=== PATIENT | male | born 1970 ===

== ENCOUNTER 2021-10-06 15:48 | Inpatient (IN) ==
[2021-10-06] MEDS: SODIUM CHLORIDE 0.9% 1000ML 1,000 ML IV SCH (16:35)
[2021-10-06 17:10] LABS: Basophils # (auto) 0.02 K/uL (0-0.2); Basophils % (auto) 0.2 %; Eosinophils # (auto) 0.17 K/uL (0-0.50); Eosinophils % (auto) 1.5 %; Hematocrit (blood only) 40.8 % (40.1-51.0); Hemoglobin 12.4 g/dl (14.0-18.0); Immature Granulocytes # (auto) 0.04 K/uL (0.00-0.02); Immature Granulocytes % (auto) 0.4 %; Lymphocytes # (auto) 1.43 K/uL (1.2-3.4); Lymphocytes % (auto) 12.9 %; Mean Corpuscular Hemoglobin 30.4 pg (25.0-34.0); Mean Corpuscular Hgb Conc 30.4 g/dL (32.0-36.0); Mean Platelet Volume 9.3 fL (9.4-12.4); Monocytes # (auto) 0.67 K/uL (0.24-0.82); Neutrophils # (auto) 8.76 K/uL (1.4-6.5); Platelet Count 164 K/uL (130-400); RDW Coefficient of Variation 15.4 % (11.5-14.5); RDW Standard Deviation 56.9 fL (36.4-46.3); Red Blood Count 4.08 M/uL (4.63-6.08); White Blood Count 11.09 K/ul (4.8-10.8)
--- NOTE | 2021-10-06 17:16 | XRay Report ---
XR chest 1V portable HISTORY: 51 years-old Male SEPSIS acute sepsis COMPARISON: CT abdomen and pelvis of same day TECHNIQUE: Portable AP view of the chest FINDINGS: Cardiac silhouette is enlarged. Left subclavian pacer/AICD. No pneumothorax. Trace left pleural effus ion. Pneumomediastinum. Reticular interstitial opacities with intermixed bibasilar consolidation. Pul monary vascular congestion. Bones appear grossly intact. IMPRESSION: 1. Cardiomegaly with pulmonary vascular congestion. 2. Mid to lower lung zone predominant interstitial and alveolar opacities are suggestive of an infect ious or inflammatory pneumonitis, possibly superimposed on fibrosis. 3. Trace left pleural effusion with pneumomediastinum again noted. ACT 112: Negative or not required by law. The above report was generated using voice recognition software. It may contain grammatical, syntax o r spelling errors. Electronically signed by: Graeme Carrera M.D. 10/06/2021 5:15 PM
[2021-10-06 17:33] LABS: Albumin Globulin Ratio 1.3 (0.9-2); Albumin Level 3.5 gm/dl (3.4-5.0); BUN Creatinine Ratio 33.3 (10-20); Bilirubin,Total 0.7 mg/dl (0.2-1.0); Calcium 9.1 mg/dl (8.5-10.1); Creatinine Clr Calc Pharmacy 123.8 ml/min; Est GFR (African American) 125.6 ml/min; Est GFR (Non-African American) 108.4 ml/min; Globulin 2.8 gm/dl (2.5-4.0); Magnesium 2.2 mg/dl (1.7-2.4); Potassium 4.4 mmol/L (3.5-5.1); Total Protein 6.3 gm/dl (6.0-8.3)
[2021-10-06 17:41] LABS: INR 1.1 (0.9-1.1); Partial Thromboplastin Ratio 0.9; Partial Thromboplastin Time 25.1 Seconds (21.0-31.0); Prothrombin Time 11.6 Seconds (9.0-12.0)
[2021-10-06] MEDS ORDERED: PIPERACILLIN/TAZOBACTAM 4.5 GM/120 ML BAG IV ONE (18:50)
--- NOTE | 2021-10-06 19:57 | Emergency Department Note ---
Impression & Plan Pneumonia, Pneumatosis coli, Pneumoperitoneum, Pneumomediastinum ED Provider Note NAME: BENJI MCKINLEY AGE: 51 SEX: M ARRIVES VIA: Walk-In INFORMANT: Patient, SNF staff ED PROVIDER(S): Héctor Ortiz MD CHIEF COMPLAINT: n/v, abnormal CT scan, referred. PLAN: Disposition: Admit MEDICAL DECISION MAKING: The patient is a pleasant 51-year-old gentleman with a complicated past medical history of myotonic muscular dystrophy, dysphagia status post PEG tube, cardiomyopathy, pAfib, non-Hodgkin's lymphoma, COVID-19 pneumonia, sleep apnea who presents to the emergency department referred from his detention facility at [facility] for evaluation of abnormal CT scan was performed outpatient and ordered for evaluation of nausea and vomiting that occurred yesterday. Patient reports he typically does not have nausea and vomiting and at this time does not feel nauseated. The patient presents in the setting of being admitted to [facility] at the beginning of August where it was noted that he had pneumoperitoneum at the time. He had an exploratory laparotomy performed with lysis of adhesions however per [facility] records there was no evidence of bowel perforation. He was diagnosed with COVID-19 pneumonia at that time and treated for this for the remainder of his hospitalization and was discharged to his current detention facility thereafter. On arrival, the patient is chronically ill-appearing, fatigued but no acute distress, afebrile with stable vital signs. He appears euvolemic to slightly hypervolemic. He has diminished breath sounds at the bases and lungs are otherwise clear. His abdomen is nontender. His gastrostomy tube site is clean dry and intact. EKG is paced on chest x-ray with presence of vascular congestion as well as reticular interstitial opacities intermixed with bibasilar consolidation. Note is made of trace left pleural effusion pneumomediastinum. WBC 11K nonspecific. HCT and platelets within normal limits. Chemistry without metabolic acidosis. Lactic acid 1.0, within normal limits. AST, ALT and alk phos 49, 70 and 344, respectively without prior values for comparison. Total bilirubin is within normal limits. Procalcitonin is marginally above normal range at 0.52. Covid-19 RNA, NAAT negative. Patient initially arrived to the emergency department with minimal documentation of his recent complicated medical course. I did review the patient's visit with RN at his detention facility and additional paperwork was faxed. Additionally documentation including discharge summary CT reports obtained from [facility]. These document the patient was admitted there on 08/13 where he was noted that he had pneumoperitoneum and underwent exploratory laparotomy per HPI above. Given the patient's recent exploratory laparotomy for those findings in comparison to CT findings today with benign abdominal exam it is suspected that these findings may reflect the evolution of the patient's previous findings in August. Case was discussed with general surgery on-call, Dr. Salinas. Appreciate recommendations and agrees that findings are unlikely to reflect an acute surgical condition per my description. Reasonable to admit the patient for further observation. Given lung findings and mildly elevated procalcitonin there is suspicion for component of pneumonia. He was ordered for IV Zosyn. Case was discussed with Dr. Santos, [facility] hospitalist, who will evaluate the patient for admission. Triage Nursing notes reviewed and agree them. Prior medical records reviewed Vital Signs: reviewed and remarkable for no significant abnormalities Differential diagnosis: Appendicitis, testicular torsion, infections, diverticulitis, UTI, obstruction, mesenteric ischemia, aortic pathology, inflammatory bowel disease, renal colic, PUD, pancreatitis, biliary pathology, hernia, volvulus, constipation, as well as other pathologies. ER treatment provided: See below. Diagnostics interpreted by me: ECG: Ventricular paced rhythm, 70 bpm, no ectopy, no overt acute ischemia. Cardiac Monitoring: An order for continuous cardiac monitoring was placed and demonstrated Ventricular paced rhythm, 70 bpm, no ectopy. Laboratory studies: See below Imaging studies: See below Outpatient CT ABDOMEN AND PELVIS CT WITH IV CONTRAST CT DOSE: 760.53 mGy.cm HISTORY: NAUSEA, VOMITING *CALL REPORT/HOLD PT* TECHNIQUE: Multiaxial CT images of the abdomen and pelvis were performed following the use of intravenous contrast. A dose lowering technique was utilized adhering to the principles of ALARA. COMPARISON STUDY: None. FINDINGS: Coarse interstitial thickening and patchy irregular airspace opacities are seen within the lung bases. Left-sided pacemaker is partially visualized. The heart is mildly enlarged. A percutaneous gastrostomy tube appears in good position. No dilated loops of bowel to suggest an obstruction. The gallbladder is surgically absent. The liver, spleen, adrenal glands, and pancreas are unremarkable. There is a 2 mm stone within the left kidney. No ureteral stones. No hydronephrosis. A few small bilateral renal hypodense lesions are radiopaque cast is on this study but statistically represent cysts. The bladder is unr emarkable. The main portal vein is patent. No evidence for portal venous gas. Normal caliber abdominal aorta. A a few prominent retroperitoneal lymph nodes the largest on image 228 measuring 22 x 9 mm. These lymph nodes are subcentimeter in short axis diameter. There is minimal retroperitoneal fat s tranding noted. There is extensive pneumatosis involving the cecum, ascending colon, and transverse colon. No bowel wall thickening or adjacent inflammatory change. No fluid collections to suggest an abscess. The extraluminal gas extends into the right retroperitoneal space and into the mediastinum. Evidence for prior midline incision. No suspicious lytic or blastic osseous lesions. IMPRESSION: 1. Extensive pneumatosis involving the cecum, ascending colon, and transverse colon with extraluminal gas extending into the right retroperitoneal space and mediastinum. These findings can be seen in the setting of benign pneumatosis coli. Ischemic bowel could also have a similar appearance in the appropriate clinical setting. Therefore, consider urgent surgical consultation for further evaluation. 2. Coarse interstitial thickening and patchy irregular airspace opacities within the lung bases which could represent an acute on chronic pneumonitis. 3. Left-sided nephrolithiasis. No hydronephrosis. 4. No evidence for bowel obstruction. 5. Additional findings as described above. Consultation(s): General surgery on-call, Dr. Salinas. Dr. Santos, [facility] hospitalist. HPI: The patient is a pleasant 51-year-old gentleman with a complicated past medical history of myotonic muscular dystrophy, dysphagia status post PEG tube, cardiomyopathy, pAfib, non-Hodgkin's lymphoma, COVID-19 pneumonia, sleep apnea who presents to the emergency department referred from his detention facility at [facility] for evaluation of abnormal CT scan was performed outpatient and ordered for evaluation of nausea and vomiting that occurred yesterday. Patient reports he typically does not have nausea and vomiting and at this time does not feel nauseated. The patient presents in the setting of being admitted to [facility] at the beginning of August where it was noted that he had pneumoperitoneum at the time. He had an exploratory laparotomy performed with lysis of adhesions however per [facility] records there was no evidence of bowel perforation. He was diagnosed with COVID-19 pneumonia at that time and treated for this for the remainder of his hospitalization and was discharged to his current detention facility thereafter. ROS: See above HPI for pertinent positives & negatives. A total of 10 systems reviewed and were otherwise negative. VITALS:See Below PHYSICAL EXAMINATION: GENERAL: Awake, alert, chronically ill-appearing, in no distress HENT: Normocephalic, atraumatic. Oropharynx with dry mucous membranes and otherwise unremarkable. EYES: Normal conjunctiva. Sclera non-icteric. NECK: Supple. No nuchal rigidity. FROM. No JVD. RESPIRATORY: Diminished at the bases and otherwise clear. CARDIAC: Regular rate, normal rhythm. Extremities warm and well perfused. Pulses equal. ABDOMEN: Soft, non-distended. No tenderness to palpation. PEG tube site c/d/i. No rebound or guarding. No masses. RECTAL: Deferred. MUSCULOSKELETAL: Chest examination reveals no tenderness. The back is symmetrical on inspection without obvious abnormality. There is no CVA tende rness to palpation. No joint edema. LOWER EXTREMITIES: Calves are equal size bilaterally and non-tender. 1+ BLE edema. No discoloration. NEURO: Normal sensorium. No sensory or motor deficits noted. SKIN: No rash or jaundice noted. Héctor Ortiz MD Past Med/Surg History Medical History (Updated 10/06/21 @ 21:00 by Simon Santos MD) Cardiomyopathy Dysphagia Myotonic muscular dystrophy SAMANTHA (obstructive sleep apnea) Paroxysmal atrial fibrillation Pneumonia due to COVID-19 virus Pneumoperitoneum Presence of combination internal cardiac defibrillator (ICD) and pacemaker Surgical History H/O exploratory laparotomy S/P gastrostomy Family History Other Family history non-contributory Social History Smoking Status: Never smoker Feels Safe at Home: Yes Allergies Allergies Allergy/AdvReac Type Severity Reaction Status Date / Time morphine Allergy Unknown Unknown Verified 10/06/21 17:02 Home Meds Home Medications Medication Instructions Recorded Confirmed Compound Magic Mix See Rx Instructions .Route .COMPLEX 10/06/21 10/06/21 Compound Magic Mix See Rx Instructions .Route .COMPLEX 10/06/21 10/06/21 Enternal Feed Order See Rx Instructions .Route .COMPLEX 10/06/21 10/06/21 Enternal Feed Order See Rx Instructions .Route .COMPLEX 10/06/21 10/06/21 Metamucil Cap 0.36gm 5 cap G-tube DAILY 10/06/21 10/06/21 acetaminophen 325 mg tablet 650 mg feeding tube Q6 PRN pain 10/06/21 10/06/21 level 1-10 acetaminophen 325 mg tablet 650 mg feeding tube Q6 PRN temp>101 10/06/21 10/06/21 albuterol sulfate 2.5 mg inhalation Q6 PRN Wheezing 10/06/21 10/06/21 apixaban 5 mg tablet (Eliquis) 5 mg feeding tube BID 10/06/21 10/06/21 carbamide peroxide 6.5 % ear drops 4 drp OTB BID 10/06/21 10/06/21 (Debrox) furosemide 40 mg tablet 40 mg feeding tube DAILY 10/06/21 10/06/21 guaifenesin 400 mg tablet 400 mg PO Q8 PRN Congestion 10/06/21 10/06/21 lactulose 20 gram/30 mL oral 20 g PO BID 10/06/21 10/06/21 solution melatonin 1 mg tablet 2 mg feeding tube HS 10/06/21 10/06/21 metoprolol succinate 25 mg 12.5 mg PO DAILY 10/06/21 10/06/21 tablet,extended release 24 hr multivitamin 1 tab feeding tube DAILY 10/06/21 10/06/21 nutritional supplements 1 ea feeding tube QS 10/06/21 10/06/21 nystatin 100,000 unit/gram topical 1 applic topical BID 10/06/21 10/06/21 cream omeprazole 20 mg delayed 20 mg PO DAILY 10/06/21 10/06/21 release,disintegrating tablet ondansetron HCl 4 mg/5 mL oral 4 mg feeding tube Q6 PRN Nausea 10/06/21 10/06/21 solution And Vomiting potassium chloride 10 mEq 10 meq PO DAILY 10/06/21 10/06/21 tablet,extended release scopolamine base 1 mg over 3 days 1 patch transdermal Q72H 10/06/21 10/06/21 transdermal patch sertraline 25 mg tablet 50 mg feeding tube DAILY 10/06/21 10/06/21 simethicone 125 mg tablet 125 mg feeding tube Q6 PRN 10/06/21 10/06/21 flatulence Results & Data (ED) Vital Signs Vital Signs - 24 hr 10/06/21 15:54 10/06/21 16:38 10/06/21 16:21 Temperature 36.3 C L Temperature Source Temporal Artery Scan Pulse Rate 95 H Pulse Rate [Finger] Respiratory Rate 18 20 Respiratory Effort / Characteristics Non-Labored Non-Labored Spontaneous Respiratory Depth Normal Blood Pressure 105/69 Blood Pressure [Right Arm] Blood Pressure Mean 81 Blood Pressure Mean [Right Arm] Pulse Oximetry 94 100 100 Oxygen Delivery Method Room Air Nasal Cannula Nasal Cannula Oxygen Flow Rate Sepsis Recent Fever Within 48 Hours No Sepsis New/Unexplained Change in Mental Status No Sepsis Action Taken by Nursing No Action Required 10/06/21 16:30 10/06/21 16:51 10/06/21 17:21 Temperature Temperature Source Pulse Rate 70 Pulse Rate [Finger] Respiratory Rate 16 20 Respiratory Effort / Characteristics Non-Labored Spontaneous Non-Labored Spontaneous Respiratory Depth Blood Pressure 120/83 Blood Pressure [Right Arm] Blood Pressure Mean 95 Blood Pressure Mean [Right Arm] Pulse Oximetry 99 100 100 Oxygen Delivery Method Nasal Cannula Nasal Cannula Oxygen Flow Rate Sepsis Recent Fever Within 48 Hours Sepsis New/Unexplained Change in Mental Status Sepsis Action Taken by Nursing 10/06/21 17:30 10/06/21 16:41 10/06/21 17:00 Temperature Temperature Source Pulse Rate 70 70 Pulse Rate [Finger] Respiratory Rate 13 23 Respiratory Effort / Characteristics Non-Labored Spontaneous Respiratory Depth Blood Pressure 104/68 103/66 Blood Pressure [Right Arm] Blood Pressure Mean 80 78 Blood Pressure Mean [Right Arm] Pulse Oximetry 100 100 100 Oxygen Delivery Method Nasal Cannula Oxygen Flow Rate Sepsis Recent Fever Within 48 Hours Sepsis New/Unexplained Change in Mental Status Sepsis Action Taken by Nursing 10/06/21 17:15 10/06/21 17:30 10/06/21 18:00 Temperature Temperature Source Pulse Rate 70 70 Pulse Rate [Finger] Respiratory Rate 14 13 Respiratory Effort / Characteristics Non-Labored Spontaneous Respiratory Depth Blood Pressure 108/68 95/66 L Blood Pressure [Right Arm] Blood Pressure Mean 81 75 Blood Pressure Mean [Right Arm] Pulse Oximetry 99 97 98 Oxygen Delivery Method Nasal Cannula Oxygen Flow Rate Sepsis Recent Fever Within 48 Hours Sepsis New/Unexplained Change in Mental Status Sepsis Action Taken by Nursing 10/06/21 18:30 10/06/21 17:45 10/06/21 18:31 Temperature Temperature Source Pulse Rate 70 66 Pulse Rate [Finger] Respiratory Rate 13 Respiratory Effort / Characteristics Non-Labored Spontaneous Respiratory Depth Blood Pressure 107/72 103/76 Blood Pressure [Right Arm] Blood Pressure Mean 83 85 Blood Pressure Mean [Right Arm] Pulse Oximetry 97 99 100 Oxygen Delivery Method Nasal Cannula Oxygen Flow Rate Sepsis Recent Fever Within 48 Hours Sepsis New/Unexplained Change in Mental Status Sepsis Action Taken by Nursing 10/06/21 20:00 Temperature Temperature Source Pulse Rate Pulse Rate [Finger] 70 Respiratory Rate 20 Respiratory Effort / Characteristics Respiratory Depth Blood Pressure Blood Pressure [Right Arm] 101/64 Blood Pressure Mean Blood Pressure Mean [Right Arm] 76 Pulse Oximetry 99 Oxygen Delivery Method Nasal Cannula Oxygen Flow Rate 4 Sepsis Recent Fever Within 48 Hours Sepsis New/Unexplained Change in Mental Status Sepsis Action Taken by Nursing Laboratory Data Attestation: I reviewed the patient's lab results. Result diagrams: 10/06/21 16:56 10/06/21 16:56 Lab Results 10/06/21 10/06/21 10/06/21 Range/Units 16:35 16:56 16:56 WBC 11.09 H (4.8-10.8) K/ul RBC 4.08 L (4.63-6.08) M/uL Hgb 12.4 L (14.0-18.0) g/dl Hct 40.8 (40.1-51.0) % MCV 100.0 (80.0-100.0) fL MCH 30.4 (25.0-34.0) pg MCHC 30.4 L (32.0-36.0) g/dL RDW Std Deviation 56.9 H (36.4-46.3) fL RDW Coeff of Tommie 15.4 H (11.5-14.5) % Plt Count 164 (130-400) K/uL MPV 9.3 L (9.4-12.4) fL Immature Gran % (Auto) 0.4 % Neut % (Auto) 79.0 % Lymph % (Auto) 12.9 % [place] % (Auto) 6.0 % Eos % (Auto) 1.5 % Baso % (Auto) 0.2 % Neut # (Auto) 8.76 H (1.4-6.5) K/uL Lymph # (Auto) 1.43 (1.2-3.4) K/uL [place] # (Auto) 0.67 (0.24-0.82) K/uL Eos # (Auto) 0.17 (0-0.50) K/uL Baso # (Auto) 0.02 (0-0.2) K/uL Immature Gran # (Auto) 0.04 H (0.00-0.02) K/uL PT 11.6 (9.0-12.0) Seconds INR 1.1 (0.9-1.1) APTT 25.1 (21.0-31.0) Seconds PTT Ratio 0.9 Sodium (136-145) mmol/L Potassium (3.5-5.1) mmol/L Chloride (98-107) mmol/L Carbon Dioxide (21-32) mmol/L Anion Gap (3-11) BUN (6-23) mg/dl Creatinine (0.6-1.4) mg/dl Est Cr Clr Drug Dosing ml/min Est GFR ( Amer) ml/min Est GFR (Non-Af Amer) ml/min BUN/Creatinine Ratio (10-20) Glucose (70-99(Fasting)) mg/dl Lactate (0.4-2.0) mmol/L Calcium (8.5-10.1) mg/dl Magnesium (1.7-2.4) mg/dl Total Bilirubin (0.2-1.0) mg/dl AST (13-39) U/L ALT (7-52) U/L Alkaline Phosphatase (34-104) U/L Total Protein (6.0-8.3) gm/dl Albumin (3.4-5.0) gm/dl Globulin (2.5-4.0) gm/dl Albumin/Globulin Ratio (0.9-2) Procalcitonin (0-0.5) ng/ml SARS-CoV-2, RNA, NAAT NEGATIVE (NEGATIVE) 10/06/21 10/06/21 10/06/21 Range/Units 16:56 16:56 16:57 WBC (4.8-10.8) K/ul RBC (4.63-6.08) M/uL Hgb (14.0-18.0) g/dl Hct (40.1-51.0) % MCV (80.0-100.0) fL MCH (25.0-34.0) pg MCHC (32.0-36.0) g/dL RDW Std Deviation (36.4-46.3) fL RDW Coeff of Tommie (11.5-14.5) % Plt Count (130-400) K/uL MPV (9.4-12.4) fL Immature Gran % (Auto) % Neut % (Auto) % Lymph % (Auto) % [place] % (Auto) % Eos % (Auto) % Baso % (Auto) % Neut # (Auto) (1.4-6.5) K/uL Lymph # (Auto) (1.2-3.4) K/uL [place] # (Auto) (0.24-0.82) K/uL Eos # (Auto) (0-0.50) K/uL Baso # (Auto) (0-0.2) K/uL Immature Gran # (Auto) (0.00-0.02) K/uL PT (9.0-12.0) Seconds INR (0.9-1.1) APTT (21.0-31.0) Seconds PTT Ratio Sodium 140 (136-145) mmol/L Potassium 4.4 (3.5-5.1) mmol/L Chloride 104 (98-107) mmol/L Carbon Dioxide 33 H (21-32) mmol/L Anion Gap 3 (3-11) BUN 23 (6-23) mg/dl Creatinine 0.69 (0.6-1.4) mg/dl Est Cr Clr Drug Dosing 123.8 ml/min Est GFR ( Amer) 125.6 ml/min Est GFR (Non-Af Amer) 108.4 ml/min BUN/Creatinine Ratio 33.3 H (10-20) Glucose 102 H (70-99(Fasting)) mg/dl Lactate 1.0 (0.4-2.0) mmol/L Calcium 9.1 (8.5-10.1) mg/dl Magnesium 2.2 (1.7-2.4) mg/dl Total Bilirubin 0.7 (0.2-1.0) mg/dl AST 49 H (13-39) U/L ALT 70 H (7-52) U/L Alkaline Phosphatase 344 H (34-104) U/L Total Protein 6.3 (6.0-8.3) gm/dl Albumin 3.5 (3.4-5.0) gm/dl Globulin 2.8 (2.5-4.0) gm/dl Albumin/Globulin Ratio 1.3 (0.9-2) Procalcitonin 0.52 H (0-0.5) ng/ml SARS-CoV-2, RNA, NAAT (NEGATIVE) Administered Medications Carbamide Peroxide (Carbamide Peroxide 6.5% 15 Ml Btl) 4 drops OTB BID [place] Stop: 10/10/21 22:12 Last Admin: 10/06/21 23:47 Dose: 4 drops Documented By: CHARO Enoxaparin Sodium (Enoxaparin Inj 40 Mg/0.4 Ml Syr) 40 mg SQ HS [place] Stop: 11/05/21 22:59 Last Admin: 10/06/21 23:47 Dose: 40 mg Documented By: CHARO Sodium Chloride (Nss 1000ml) 1,000 mls @ 125 mls/hr IV .Q8H [place] Stop: 11/05/21 16:29 Last Admin: 10/07/21 00:42 Dose: 125 mls/hr Documented By: Infusion: 10/07/21 00:35 Dose: 125 mls/hr Documented By: Admin: 10/06/21 16:35 Dose: 125 mls/hr Documented By: MARIANGEL Discontinued Medications Piperacillin Sod/Tazobactam Sod (Zosyn) 4.5 gm in 120 mls @ 240 mls/hr IV NOW ONE Stop: 10/06/21 19:19 Last Infusion: 10/06/21 20:00 Dose: 0 mls/hr Documented By: Admin: 10/06/21 19:13 Dose: 240 mls/hr Documented By: CHARO Lactulose (Lactulose Syrup 20 Gm/30 Ml Udc) 20 gm PO BID [place] Stop: 11/05/21 22:12 Last Admin: 10/06/21 23:18 Dose: Not Given Documented By: CHARO Imaging Data Radiologist's Impression: Chest X-Ray 10/06/21 16:21 XR chest 1V portable HISTORY: 51 years-old Male SEPSIS acute sepsis COMPARISON: CT abdomen and pelvis of same day TECHNIQUE: Portable AP view of the chest FINDINGS: Cardiac silhouette is enlarged. Left subclavian pacer/AICD. No pneumothorax. Trace left pleural effusion. Pneumomediastinum. Reticular interstitial opacities with intermixed bibasilar consolidation. Pulmonary vascular congestion. Bones appear grossly intact. IMPRESSION: 1. Cardiomegaly with pulmonary vascular congestion. 2. Mid to lower lung zone predominant interstitial and alveolar opacities are suggestive of an infectious or inflammatory pneumonitis, possibly superimposed on fibrosis. 3. Trace left pleural effusion with pneumomediastinum again noted. ACT 112: Negative or not required by law. The above report was generated using voice recognition software. It may contain grammatical, syntax or spelling errors. Electronically signed by: Graeme Carrera M.D. 10/06/2021 5:15 PM Discharge Plan Visit Data Chief Complaint: Testing Request Stated Complaint: ABNORMAL CT RESULTS, DR LUDWIG ED Provider: Héctor Ortiz Discharge Problem: Pneumonia, Pneumatosis coli, Pneumoperitoneum, Pneumomediastinum Patient Disposition: Admitted As Inpatient Discharge Instructions Interventions: ED Discharge Assessment Last Done: 10/06/21 22:19
--- NOTE | 2021-10-06 20:04 | Surgery Consultation ---
Date of Consultation October 06, 2021 Assessment & Plan (1) Pneumatosis coli: Patient is being admitted on the hospitalist service: At the time of my interview the patient has an entirely benign abdominal exam. Though we do not have the images from patient's presentation to [facility], the report was available. The description of patient's CT scan at that time appears very similar to the CT scan reading at [facility] today. As noted the patient underwent emergent exploratory laparotomy without any significant findings of ischemia or perforation of the bowel or small bowel. Patient has an entirely benign abdominal exam at this time. He does not have any concerning laboratory or clinical evidence of intestinal ischemia (only minimal elevation of his white blood cell count, normal lactic acid level, normal renal function, normotensive, not tachycardic, and afebrile). This case was discussed with Dr. Salinas and he recommends proceeding as follows: No operative intervention at this time due to the benign findings on exam Keep patient n.p.o. for the present time Hydrate with IV fluids Empiric treatment with antibiotics Follow serial labs The patient will be reassessed throughout his hospitalization with additional recommendations to follow based on his clinical course as it unfolds Supervising Physician Co-Signing Physician Notes As per Sha Muro physician assistant food service director The patient is resting comfortably without any abdominal discomfort no nausea had a bowel movement this morning The abdomen is completely benign Patient does take oral intake PEG tube was placed when he had COVID as best as I can tell what the patient tells me it is occasionally being used At this point I would recommend proceeding with some oral intake no surgery is planned History of Present Illness Reason for Consultation: Pneumatosis intestinalis History of Present Illness Is a 51-year-old male with multiple underlying medical problems including muscular dystrophy, atrial fibrillation, congestive heart failure, and a COVID- 19 infection in March of this year complicated by hypoxic respiratory failure. The patient's past surgical history includes a cholecystectomy, tracheostomy, PEG tube placement, and ICD placement patient proved to be a poor historian regarding his recent past medical history however information was obtained from review of records that were retrieved from facilities where patient previously received care. This patient suffered a COVID-19 infection in March 2021 resulting in hypoxic respiratory failure. The patient did require tracheostomy and PEG tube placement. Following his COVID infection patient was at [facility] recovering. He reportedly developed severe abdominal pain along with nausea and vomiting on August 13 of this year. Patient was sent for a CT scan of the abdomen which showed concern for a perforation of the colon at the level of the a sending colon/hepatic flexure. There is also extraluminal gas noted and there is also pneumatosis noted in the ascending colon. It was noted that the patient had a prior cholecystectomy and his appendix was normal on the study. The patient was seen by the surgical service at [facility] in [place] on 08/14/2021 and patient was taken emergent to the operating room where he underwent an exploratory laparotomy. According to the operative note the patient's entire small bowel was run from the ligament of Treitz to the cecum. The entire colon was examined as well. There were no areas of ischemia of the small or large bowel. There is no evidence of perforation. No colon masses were noted. There is no twisting of the mesentery noted. The patient also had an intraoperative rectal exam performed which was negative for any masses. There was some questionable constriction of the sigmoid colon due to epiploic appendages which were ultimately taken down. Cording to this operative note the patient did not require any small bowel or large bowel resection. Patient remained in the hospital until September 02 and according to discharge summary his extensive hospitalization was in large part due to difficulty placing the patient due to his multiple medical comorbidities. Patient has reportedly since been residing at the [facility] when earlier today the patient developed nausea and vomiting. He was therefore referred to [facility] emergency department where he underwent labs and imaging which are delineated below. I did asked the patient about his nausea and vomiting and he notes that this occurred earlier this morning but he specifically denies any abdominal pain. To the best of his knowledge he did not have any fevers, shakes, or chills. He notes that he has not had any change in bowel habits and he to the best of his knowledge he did have a bowel movement yesterday. He notes that he has been eating well and his most recent meal was his evening meal yesterday. He specifically denies any shortness of breath or cough. Denies any difficulty urinating. The patient has had labs and imaging performed today both as an outpatient and also in the emergency department. These were independently reviewed by myself. A CT scan was performed earlier today. The scan showed extensive pneumatosis which involved the cecum, ascending colon, and transverse colon with extraluminal gas extending into the right retroperitoneal space and mediastinum. No evidence of bowel obstruction. There is no evidence of hydronephrosis but a left-sided nephrolithiasis was noted. There is no evidence of portal venous gas. Chest x-ray was performed that showed a trace left pleural effusion and pneumomediastinum. Labs including CBC were white blood cell count was 11.0. Hemoglobin was 12.4 and hematocrit was normal. His platelet count was also noted to be normal. Coagulation studies were all within the normal limits. Chemistry profile showed sodium, potassium, BUN, and creatinine were normal. A lactic acid level was nonelevated at 1.0. There was a slight elevation of patient's transaminases and alkaline phosphatase with an AST of 49, ALT of 70, and alkaline phosphatase of 344. His total bilirubin was normal. Procalcitonin had a very slight elevation at 0.52. A COVID test was performed and was noted to be negative. Patient was unsure about any medical problems that run in his family. He also reports being a lifetime non-smoker. At the time of my interview the patient was resting comfortably in bed. He was in no distress and did not report any pain of his abdomen. Allergies Allergy/AdvReac Type Severity Reaction Status Date / Time morphine Allergy Unknown Unknown Verified 10/06/21 17:02 Home Medications Medication Instructions Recorded Confirmed Type Compound Magic Mix See Rx Instructions .Route .COMPLEX 10/06/21 10/06/21 History Compound Magic Mix See Rx Instructions .Route .COMPLEX 10/06/21 10/06/21 History Enternal Feed Order See Rx Instructions .Route .COMPLEX 10/06/21 10/06/21 History Enternal Feed Order See Rx Instructions .Route .COMPLEX 10/06/21 10/06/21 History Metamucil Cap 0.36gm 5 cap G-tube DAILY 10/06/21 10/06/21 History acetaminophen 325 mg tablet 650 mg feeding tube Q6 PRN pain 10/06/21 10/06/21 History level 1-10 acetaminophen 325 mg tablet 650 mg feeding tube Q6 PRN temp>101 10/06/21 10/06/21 History albuterol sulfate 2.5 mg inhalation Q6 PRN Wheezing 10/06/21 10/06/21 History apixaban 5 mg tablet (Eliquis) 5 mg feeding tube BID 10/06/21 10/06/21 History carbamide peroxide 6.5 % ear drops 4 drp OTB BID 10/06/21 10/06/21 History (Debrox) furosemide 40 mg tablet 40 mg feeding tube DAILY 10/06/21 10/06/21 History guaifenesin 400 mg tablet 400 mg PO Q8 PRN Congestion 10/06/21 10/06/21 History lactulose 20 gram/30 mL oral 20 g PO BID 10/06/21 10/06/21 History solution melatonin 1 mg tablet 2 mg feeding tube HS 10/06/21 10/06/21 History metoprolol succinate 25 mg 12.5 mg PO DAILY 10/06/21 10/06/21 History tablet,extended release 24 hr multivitamin 1 tab feeding tube DAILY 10/06/21 10/06/21 History nutritional supplements 1 ea feeding tube QS 10/06/21 10/06/21 History nystatin 100,000 unit/gram topical 1 applic topical BID 10/06/21 10/06/21 History cream omeprazole 20 mg delayed 20 mg PO DAILY 10/06/21 10/06/21 History release,disintegrating tablet ondansetron HCl 4 mg/5 mL oral 4 mg feeding tube Q6 PRN Nausea 10/06/21 10/06/21 History solution And Vomiting potassium chloride 10 mEq 10 meq PO DAILY 10/06/21 10/06/21 History tablet,extended release scopolamine base 1 mg over 3 days 1 patch transdermal Q72H 10/06/21 10/06/21 History transdermal patch sertraline 25 mg tablet 50 mg feeding tube DAILY 10/06/21 10/06/21 History simethicone 125 mg tablet 125 mg feeding tube Q6 PRN 10/06/21 10/06/21 History flatulence Patient History Medical History (Updated 10/06/21 @ 21:00 by Simon Santos MD) Cardiomyopathy Dysphagia Myotonic muscular dystrophy SAMANTHA (obstructive sleep apnea) Paroxysmal atrial fibrillation Pneumonia due to COVID-19 virus Pneumoperitoneum Presence of combination internal cardiac defibrillator (ICD) and pacemaker Surgical History H/O exploratory laparotomy S/P gastrostomy Family History Other Family history non-contributory Social History Smoking Status: Never smoker Hx Alcohol Use: No Hx Substance Use: No Preferred Language: Taiwanese Greenhouse Worker Required: No Beliefs That Will Affect Care: None Current Living Situation: Personal Care Facility Feels Safe at Home: Yes Assistive Devices: Mechanical Lift and Oxygen - Continuous Immunizations: Please see the HPI for listed past medical history, past surgical history, social history, and family history. Review of Systems Constitutional: no fever and no chills Eyes: no eye pain Ear, Nose, Mouth, Throat: no ear pain Respiratory: no cough and no dyspnea Cardiovascular: no chest pain Gastrointestinal: + nausea and + vomiting; no abdominal pain and no change in bowel habits Genitourinary: no dysuria Musculoskeletal: no back pain Integumentary: no rash Neurologic: History of muscular dystrophy Physical Exam Constitutional: + thin; no acute distress Eyes: no conjunctival abnormality ENMT: Ears: no hearing impairment and no external ear abnormality Mucous membranes of the oropharynx appeared dry Neck: trachea midline Respiratory: normal respiratory effort; no respiratory distress and no labored breathing No wheezing. Cardiovascular: Rate/Rhythm: regular rate and regular rhythm Gastrointestinal (Abdomen): Patient's abdomen is soft, nonrigid, nondistended, and nontender. There is no rebound tenderness or guarding. There is no pain with light or deep palpation in any area of the abdomen. A PEG tube is noted to be in place. The insertion site appears clean without signs of infection. Musculoskeletal: No calf tenderness Skin: no rashes Neurologic: Patient is able to move all 4 extremities and follows simple commands Results & Data ([facility]) Vital Signs (Past 12 Hours) Vital Signs Temp Pulse Resp BP Pulse Ox O2 Del Method 10/06/21 18:31 66 103/76 100 10/06/21 17:45 70 13 107/72 99 10/06/21 18:30 97 Nasal Cannula 10/06/21 18:00 98 Nasal Cannula 10/06/21 17:30 70 13 95/66 L 97 10/06/21 17:15 70 14 108/68 99 10/06/21 17:00 70 23 103/66 100 10/06/21 16:41 70 13 104/68 100 10/06/21 17:30 100 Nasal Cannula 07/28/22 17:21 100 Nasal Cannula 10/06/21 16:51 20 100 Nasal Cannula 10/06/21 16:30 70 16 120/83 99 10/06/21 16:21 100 Nasal Cannula 10/06/21 16:38 20 100 Nasal Cannula 10/06/21 15:54 36.3 C L 95 H 18 105/69 94 Room Air PG Care Time/CCT Total # of Minutes Spent Total Time Spent with Patient: Total time spent is greater than 50% in coordination of care (as documented) at patient's floor/unit and/or counseling patient: Coding Level of Care Code 18073 Inpt Consult Level 5 Diagnoses Pneumatosis coli K63.89
--- NOTE | 2021-10-06 21:16 | History & Physical Report ---
Date of Service October 06, 2021 Assessment & Plan (1) Pneumatosis coli: Plan: CT a/p on admission showed "Extensive pneumatosis involving the cecum, ascending colon, and transverse colon with extraluminal gas extending into the right retroperitoneal space and mediastinum." This reads very similar to his CT a/p at [facility] on 08/13/2021 for which he underwent a benign exploratory laparotomy. - Presently abdomen appears benign with minimal tenderness, no rebound/guarding. Seen by surgery with no acute surgical need. Discussed case with Thai Hdez at [facility]. He coincidentally published paper on pneumatosis in patients using lactulose (PMID: [id number]). He agreed that there was no indication for surgery at this time given his physical exam findings, vital signs, and normal lactate. - NPO - Stop lactulose - Start Zosyn - General surgery will follow (2) Pneumonia: Plan: Possible pneumonia vs. lung scarring as (again), CT a/p from 08/13 shows similar findings in the lung bases. Procalcitonin is 0.5, but there is so much going on for him that I - Zosyn for the pneumatosis will cover usual PNA bacteria as well as aspiration pneumonia - Defer atypical coverage for now - MRSA swab (3) Cardiomyopathy: Plan: Unknown EF and unknown cause (presumed due to his MD?). No records available at this time. - Continue beta-tata and furosemide (4) Paroxysmal atrial fibrillation: Plan: Presently in normal sinus. - Continue beta-tata - Hold apixaban (5) Dysphagia: Plan: Was trached due to Covid. Unclear if dysphagia is from trach vs muscular dystrop hy or both. It sounds like he does eat at [facility], and I'm not clear on if it is just with DEHYDRATOR TENDER or if he has an actual diet. - DEHYDRATOR TENDER eval ordered 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 (7) DVT prophylaxis: Plan: Lovenox 40 mg SQ daily - Return to home apixaban once we are sure no surgery is needed History of Present Illness Primary Care Provider: [facility] 51yo M w/ hx of muscular dystrophy who presents with episode of pneumatosis coli. The patient was admitted to [facility] in early August when he had nausea, vomiting, and abdominal pain. At that time, there was concern for perforation in the region of the ascending colon/hepatic flexure with pericolonic extraluminal gas and trace RUQ pneumoperitoneum. He underwent an emergent ex lap at [facility], and they did *NOT* find any perforation. He was eventually discharged to [facility]. Per the patient, yesterday they were giving him medications in applesauce yesterday when he became acutely nauseated and threw up. However, he did not have abdominal pain. The provider there ordered a CT scan which showed further pneumatosis, and he was sent to the ER. Allergies Allergy/AdvReac Type Severity Reaction Status Date / Time morphine Allergy Unknown Unknown Verified 10/06/21 17:02 Home Medications Medication Instructions Recorded Confirmed Type Compound Magic Mix See Rx Instructions .Route .COMPLEX 10/06/21 10/06/21 History Compound Magic Mix See Rx Instructions .Route .COMPLEX 10/06/21 10/06/21 History Enternal Feed Order See Rx Instructions .Route .COMPLEX 10/06/21 10/06/21 History Enternal Feed Order See Rx Instructions .Route .COMPLEX 10/06/21 10/06/21 History Metamucil Cap 0.36gm 5 cap G-tube DAILY 10/06/21 10/06/21 History acetaminophen 325 mg tablet 650 mg feeding tube Q6 PRN pain 10/06/21 10/06/21 History level 1-10 acetaminophen 325 mg tablet 650 mg feeding tube Q6 PRN temp>101 10/06/21 10/06/21 History albuterol sulfate 2.5 mg inhalation Q6 PRN Wheezing 10/06/21 10/06/21 History apixaban 5 mg tablet (Eliquis) 5 mg feeding tube BID 10/06/21 10/06/21 History carbamide peroxide 6.5 % ear drops 4 drp OTB BID 10/06/21 10/06/21 History (Debrox) furosemide 40 mg tablet 40 mg feeding tube DAILY 10/06/21 10/06/21 History guaifenesin 400 mg tablet 400 mg PO Q8 PRN Congestion 10/06/21 10/06/21 History lactulose 20 gram/30 mL oral 20 g PO BID 10/06/21 10/06/21 History solution melatonin 1 mg tablet 2 mg feeding tube HS 10/06/21 10/06/21 History metoprolol succinate 25 mg 12.5 mg PO DAILY 10/06/21 10/06/21 History tablet,extended release 24 hr multivitamin 1 tab feeding tube DAILY 10/06/21 10/06/21 History nutritional supplements 1 ea feeding tube QS 10/06/21 10/06/21 History nystatin 100,000 unit/gram topical 1 applic topical BID 10/06/21 10/06/21 History cream omeprazole 20 mg delayed 20 mg PO DAILY 10/06/21 10/06/21 History release,disintegrating tablet ondansetron HCl 4 mg/5 mL oral 4 mg feeding tube Q6 PRN Nausea 10/06/21 10/06/21 History solution And Vomiting potassium chloride 10 mEq 10 meq PO DAILY 10/06/21 10/06/21 History tablet,extended release scopolamine base 1 mg over 3 days 1 patch transdermal Q72H 10/06/21 10/06/21 History transdermal patch sertraline 25 mg tablet 50 mg feeding tube DAILY 10/06/21 10/06/21 History simethicone 125 mg tablet 125 mg feeding tube Q6 PRN 10/06/21 10/06/21 History flatulence Past Med/Surg History Medical History (Updated 10/06/21 @ 21:00 by Simon Santos MD) Cardiomyopathy Dysphagia Myotonic muscular dystrophy SAMANTHA (obstructive sleep apnea) Paroxysmal atrial fibrillation Pneumonia due to COVID-19 virus Pneumoperitoneum Presence of combination internal cardiac defibrillator (ICD) and pacemaker Surgical History H/O exploratory laparotomy S/P gastrostomy Family History Other Family history non-contributory Social History Smoking Status: Never smoker Feels Safe at Home: Yes Review of Systems Review of Systems: All systems reviewed & are unremarkable except as noted in HPI & below Physical Exam Constitutional: + thin and + frail appearing; no acute distress Eyes: EOM intact bilaterally; no conjunctival abnormality ENMT: external ear and nose normal, oropharynx normal Neck: trachea midline, no thyromegaly normal visual inspection Respiratory: normal respiratory effort, lungs clear to auscultation no respiratory distress Cardiovascular: RRR, no murmur, no edema Gastrointestinal (Abdomen): Inspection/Auscultation: + abdomen distended, normal bowel sounds and + abdominal surgical scar (Midline); + abdomen abnormal to inspection Percussion/Palpation: + abdomen tender (Mild tenderness on right side) and abdomen soft; no guarding, abdomen not rigid and no ascites Musculoskeletal: no cyanosis or clubbing, extremities motor strength 5/5 Skin: no rashes, warm and dry Neurologic: moves all extremities and awake Psychiatric: Orientation: alert, oriented to person and cooperative Results & Data [facility]) Vital Signs (Past 12 Hours) Vital Signs Temp Pulse Pulse Resp BP BP Pulse Ox 10/06/21 20:00 70 20 101/64 99 10/06/21 18:31 66 103/76 100 10/06/21 17:45 70 13 107/72 99 10/06/21 18:30 97 10/06/21 18:00 98 10/06/21 17:30 70 13 95/66 L 97 10/06/21 17:15 70 14 108/68 99 10/06/21 17:00 70 23 103/66 100 10/06/21 16:41 70 13 104/68 100 10/06/21 17:30 100 10/06/21 17:21 100 10/06/21 16:51 20 100 10/06/21 16:30 70 16 120/83 99 10/06/21 16:21 100 10/06/21 16:38 20 100 10/06/21 15:54 36.3 C L 95 H 18 105/69 94 O2 Del Method O2 Flow Rate 10/06/21 20:00 Nasal Cannula 4 10/06/21 18:31 10/06/21 17:45 10/06/21 18:30 Nasal Cannula 10/06/21 18:00 Nasal Cannula 10/06/21 17:30 10/06/21 17:15 10/06/21 17:00 10/06/21 16:41 10/06/21 17:30 Nasal Cannula 10/06/21 17:21 Nasal Cannula 10/06/21 16:51 Nasal Cannula 10/06/21 16:30 10/06/21 16:21 Nasal Cannula 10/06/21 16:38 Nasal Cannula 10/06/21 15:54 Room Air Code Status & VTE Plan VTE Prophylaxis Plan VTE Prophylaxis will be ordered: Yes PG Care Time/CCT Total # of Minutes Spent Total Time Spent with Patient: Total time spent is greater than 50% in coordination of care (as documented) at patient's floor/unit and/or counseling patient: Coding Level of Care Code 72300 Initial Inpt Care Lvl 3 Diagnoses Pneumatosis coli K63.89 Pneumonia J18.9 Cardiomyopathy I42.9 Paroxysmal atrial fibrillation I48.0 Dysphagia R13.10 Myotonic muscular dystrophy G71.11 DVT prophylaxis Z29.9
[2021-10-06] MEDS ORDERED: ONDANSETRON INJ 2 MG/ML 2 ML VIAL IV PRN (22:13)
[2021-10-06] MEDS ORDERED: LACTULOSE SYRUP 20 GM/30 ML UDC PO SCH (22:13)
[2021-10-06] MEDS ORDERED: ONDANSETRON 4 MG OD TAB GT PRN (22:13)
[2021-10-06] MEDS ORDERED: ALBUTEROL 0.083% NEBU SOLN 3 ML VIAL INH PRN (22:13)
[2021-10-06] MEDS ORDERED: ACETAMINOPHEN SUSP 325 MG/10.15 ML UDC PEG PRN (22:13)
[2021-10-06] MEDS ORDERED: SIMETHICONE 40 MG/0.6 ML 30ML GT PRN (23:01)
[2021-10-06] MEDS: CARBAMIDE PEROXIDE 6.5% 15 ML BTL OTB SCH (23:47)
[2021-10-06] MEDS: ENOXAPARIN INJ 40 MG/0.4 ML SYR SQ SCH (23:47)
[2021-10-07] MEDS: SODIUM CHLORIDE 0.9% 1000ML 1,000 ML IV SCH ×3 (00:42→15:37)
[2021-10-07] MEDS: PIPERACILLIN/TAZOBACTAM 3.375 GM in DEXTROSE 5% 100 ML IV SCH ×3 (02:06→17:56)
[2021-10-07] MEDS: CHECK SCOPOLAMINE PATCH PLACEMENT SCH ×3 (02:07→15:37)
[2021-10-07] MEDS: SCOPOLAMINE 1 MG TDSY TD SCH (02:07)
[2021-10-07 06:20] LABS: Hematocrit (blood only) 37.7 % (40.1-51.0); Hemoglobin 11.5 g/dl (14.0-18.0); Mean Corpuscular Hemoglobin 30.5 pg (25.0-34.0); Mean Corpuscular Hgb Conc 30.5 g/dL (32.0-36.0); Mean Platelet Volume 9.3 fL (9.4-12.4); Platelet Count 151 K/uL (130-400); RDW Coefficient of Variation 15.2 % (11.5-14.5); Red Blood Count 3.77 M/uL (4.63-6.08); White Blood Count 8.57 K/ul (4.8-10.8)
[2021-10-07 06:52] LABS: Albumin Globulin Ratio 1.2 (0.9-2); Albumin Level 3.1 gm/dl (3.4-5.0); BUN Creatinine Ratio 28.8 (10-20); Bilirubin,Total 0.7 mg/dl (0.2-1.0); Calcium 8.5 mg/dl (8.5-10.1); Est GFR (African American) 122.7 ml/min; Est GFR (Non-African American) 105.9 ml/min; Globulin 2.5 gm/dl (2.5-4.0); Potassium 3.6 mmol/L (3.5-5.1); Total Protein 5.6 gm/dl (6.0-8.3)
[2021-10-07] MEDS: SERTRALINE HCL 50 MG TABLET PEG SCH (10:02)
[2021-10-07] MEDS: CARBAMIDE PEROXIDE 6.5% 15 ML BTL OTB SCH ×2 (10:02→22:21)
[2021-10-07] MEDS: METOPROLOL TARTRATE 25 MG TAB OG SCH ×2 (10:56→21:17)
--- NOTE | 2021-10-07 20:53 | Electrocardiogram Report ---
Test Reason : Blood Pressure : / mmHG Vent. Rate : 070 BPM Atrial Rate : 375 BPM P-R Int : 000 ms QRS Dur : 158 ms QT Int : 452 ms P-R-T Axes : 000 149 058 degrees QTc Int : 488 ms Ventricular-paced rhythm Underlying atrial fibrillation Abnormal ECG No previous ECGs available Confirmed by Bill Lepe ([id number]) on 10/07/2021 8:53:34 PM Referred By: [facility] Confirmed By:Bill Lepe
--- NOTE | 2021-10-07 20:55 | Hospitalist Progress Note ---
Date of Service October 07, 2021 Assessment & Plan (1) Pneumatosis coli: Plan: CT a/p on admission showed "Extensive pneumatosis involving the cecum, ascending colon, and transverse colon with extraluminal gas extending into the right retroperitoneal space and mediastinum." This reads very similar to his CT a/[facility] for which he underwent a benign exploratory laparotomy. - Presently abdomen appears benign with minimal tenderness, no rebound/guarding. Seen by surgery with no acute surgical need. Discussed case with Thai Hdez at [facility]. He coincidentally published paper on pneumatosis in patients using lactulose (PMID: [id number]). He agreed that there was no indication for surgery at this time given his physical exam findings, vital signs, and normal lactate. - NPO except ice chips. - Stop lactulose -will consider using rifaximin - Start Zosyn - General surgery will follow: continue conservative management (2) Pneumonia: Plan: Possible pneumonia vs. lung scarring as (again), CT a/p from 08/13 shows similar findings in the lung bases. Procalcitonin is 0.5, but there is so much going on for him that I - Zosyn for the pneumatosis will cover usual PNA bacteria as well as aspiration pneumonia - Defer atypical coverage for now - MRSA swab (3) Cardiomyopathy: Plan: Unknown EF and unknown cause (presumed due to his MD?). No records available at this time. - Continue beta-tata and furosemide (4) Paroxysmal atrial fibrillation: Plan: Presently in normal sinus. - Continue beta-tata - Hold apixaban (5) Dysphagia: Plan: Was trached due to Covid. Unclear if dysphagia is from trach vs muscular dystrophy or both. It sounds like he does eat at [facility], and I'm not clear on if it is just with PROCESS CONTROL PROGRAMMER or if he has an actual diet. - PROCESS CONTROL PROGRAMMER eval ordered: reports patient should not be eating. 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 Patient is asking for ice chips. He understands risks of aspiration pneumonia as he has poor motility of his esophagus. Review of Systems Review of Systems: All systems reviewed & are unremarkable except as noted in HPI & below Physical Exam Physical Exam: Constitutional: + thin and + frail appearing; no acute distress Eyes: EOM intact bilaterally; no conjunctival abnormality ENMT: external ear and nose normal, oropharynx normal Neck: trachea midline, no thyromegaly normal visual inspection Respiratory: normal respiratory effort, lungs clear to auscultation no respiratory distress Cardiovascular: RRR, no murmur, no edema Gastrointestinal (Abdomen): Inspection/Auscultation: + abdomen distended, normal bowel sounds and + abdominal surgical scar (Midline); + abdomen abnormal to inspection Percussion/Palpation: + decreased abdomen tender (Mild tenderness on right side) and abdomen soft; no guarding, abdomen not rigid and no ascites Musculoskeletal: no cyanosis or clubbing, extremities motor strength 5/5 Skin: no rashes, warm and dry Neurologic: moves all extremities and awake Psychiatric: Orientation: alert, oriented to person and cooperative Results & Data Results & Data ([facility]) Vital Signs (Past 12 Hours) Vital Signs Temp Pulse Pulse Resp BP Pulse Ox O2 Del Method 10/07/21 19:45 36.3 C L 70 18 104/67 100 Nasal Cannula 10/07/21 16:00 70 10/07/21 15:35 36.4 C L 73 16 109/71 100 Nasal Cannula 10/07/21 13:49 Nasal Cannula 10/07/21 11:59 36.4 C L 69 16 107/70 96 Nasal Cannula O2 Flow Rate 10/07/21 19:45 4 10/07/21 16:00 10/07/21 15:35 4 10/07/21 13:49 4 10/07/21 11:59 4 PG Care Time/CCT Total # of Minutes Spent Total Time Spent with Patient: Total time spent is greater than 50% in coordination of care (as documented) at patient's floor/unit and/or counseling patient: Coding Level of Care Code 90159 Subseq Hosp Care Lvl 3 Diagnoses Pneumatosis coli K63.89 Pneumonia J18.9 Cardiomyopathy I42.9 Paroxysmal atrial fibrillation I48.0 Dysphagia R13.10 Myotonic muscular dystrophy G71.11 DVT prophylaxis Z29.9 Time Spent (min) 35
[2021-10-07] MEDS: ENOXAPARIN INJ 40 MG/0.4 ML SYR SQ SCH (21:15)
[2021-10-07] MEDS ORDERED: Nursing to Pharmacy Communication SCH (22:30)
[2021-10-08] MEDS: CHECK SCOPOLAMINE PATCH PLACEMENT SCH ×3 (01:25→14:52)
[2021-10-08] MEDS: SODIUM CHLORIDE 0.9% 1000ML 1,000 ML IV SCH ×2 (01:25→09:39)
[2021-10-08] MEDS: PIPERACILLIN/TAZOBACTAM 3.375 GM in DEXTROSE 5% 100 ML IV SCH ×3 (04:42→20:09)
[2021-10-08 06:57] LABS: BUN Creatinine Ratio 26.6 (10-20); Calcium 8.3 mg/dl (8.5-10.1); Creatinine Clr Calc Pharmacy 133.5 ml/min; Est GFR (African American) 129.6 ml/min; Est GFR (Non-African American) 111.8 ml/min; Potassium 3.4 mmol/L (3.5-5.1)
[2021-10-08 07:23] LABS: Hematocrit (blood only) 35.7 % (40.1-51.0); Hemoglobin 10.7 g/dl (14.0-18.0); Mean Corpuscular Hemoglobin 30.4 pg (25.0-34.0); Mean Corpuscular Volume 101.4 fL (80.0-100.0); Mean Platelet Volume 9.7 fL (9.4-12.4); Platelet Count 159 K/uL (130-400); RDW Standard Deviation 55.8 fL (36.4-46.3); Red Blood Count 3.52 M/uL (4.63-6.08); White Blood Count 7.06 K/ul (4.8-10.8)
--- NOTE | 2021-10-08 08:24 | Surgery Progress Note ---
Date of Service October 08, 2021 Assessment & Plan (1) Pneumatosis coli: Plan: exam benign afebrile, WBC normal if not able to take po, consider low rate tube feed in next 24 hours Admission and Anticipated Discharge Date Admission Date: October 06, 2021 Supervising Physician Co-Signing Physician Notes Pnt s&e, agree with above. 51 y/o male with vomiting, pneumatosis on ct. benign abdomen, NT. labs unremarkable. restart tube feeds, no surgical intervention. surgery will follow peripherally, call with questions or concerns. Subjective no complaints reports BM this morning Physical Exam Gastrointestinal (Abdomen): Inspection/Auscultation: abdomen not distended Percussion/Palpation: abdomen soft; no guarding Results & Data ([facility]) Vital Signs (Past 12 Hours) Vital Signs Temp Pulse Pulse Resp BP BP Pulse Ox 10/08/21 08:14 19 100 10/08/21 07:57 36.2 C L 69 18 107/71 94 10/07/21 22:17 70 10/07/21 23:03 36.7 C 73 18 102/68 90 10/07/21 21:11 69 106/70 O2 Del Method O2 Flow Rate 10/08/21 08:14 Room Air 10/08/21 07:57 Room Air 10/07/21 22:17 10/07/21 23:03 Nasal Cannula 4 10/07/21 21:11 PG Care Time/CCT Total # of Minutes Spent Total Time Spent with Patient: Total time spent is greater than 50% in coordination of care (as documented) at patient's floor/unit and/or counseling patient: Coding Level of Care Code 30407 Subseq Hosp Care Lvl 1 Diagnoses Pneumatosis coli K63.89
[2021-10-08] MEDS: METOPROLOL TARTRATE 25 MG TAB OG SCH ×2 (09:39→22:12)
[2021-10-08] MEDS: SERTRALINE HCL 50 MG TABLET PEG SCH (09:39)
[2021-10-08] MEDS: CARBAMIDE PEROXIDE 6.5% 15 ML BTL OTB SCH ×2 (09:39→22:00)
--- NOTE | 2021-10-08 11:44 | CT Scan Report ---
ABDOMEN AND PELVIS CT WITHOUT CONTRAST CT DOSE: 344.97 mGy.cm HISTORY: Follow up study in a patient with acute nausea and vomiting pneumatosis intestinalis. intes tinal pneumoatosis TECHNIQUE: Multiaxial CT images of the abdomen and pelvis were performed without contrast. A dose lo wering technique was utilized adhering to the principles of ALARA. COMPARISON STUDY: CT abdomen pelvis 10/06/2021 FINDINGS: Cardiomegaly with partially imaged pacer/AICD leads. There is no pericardial effusion. Small left ple ural effusion with unchanged left basilar pleural thickening. Bibasilar reticular interstitial, groun dglass and linear consolidative opacities. Small amount of pneumomediastinum is again noted along wit h bibasilar traction bronchiectasis. Air within the right retroperitoneal space is again noted in conjunction with extensive pneumatosis i nvolving the cecum, ascending and transverse colon. There is no significant change from the prior mik dy. There is no bowel obstruction. No significant bowel wall thickening. The appendix measures 6 mm t ransversely and is noninflamed. Satisfactory positioning of the gastrostomy tube. Stranding of the mi dline abdominal wall suggestive of prior surgical incision. Tiny fat filled periumbilical hernia. 1.3 cm peripherally calcified splenic artery aneurysm. The spleen is mildly enlarged, 13.3 cm. Unrema rkable equivocal stranding adjacent to the pancreatic head. No pancreatic ductal dilation. The gallbl adder appears surgically absent. Unremarkable adrenal glands. Unremarkable liver. There is mild nonspecific bilateral perinephric stranding. 4 mm calcification of the inferior pole le ft kidney. No ureteral calculi or hydronephrosis. Decompressed or bladder with wall thickening and pe rivesicular stranding. Mild prostamegaly. Atherosclerosis of the aorta. Straightening of the retroper itoneum with several prominent retroperitoneal lymph nodes measuring up to 9 mm, stable from prior. M ildly enlarged periportal and gastrohepatic lymph nodes measure up to 11 mm which appears stable. Unremarkable soft tissues. There is no acute fracture. Degenerative changes of the shoulders and spin e. IMPRESSION: 1. Stable appearance of extensive pneumatosis coli involving the cecum, ascending and transverse colo n with pneumomediastinum and pneumoretroperitoneum. Again, findings may be secondary to benign pneuma tosis coli versus ischemic bowel. Correlate with serum lactate. 2. Chronic interstitial lung disease. A superimposed acute pneumonitis would be difficult to exclude. 3. Left nephrolithiasis without hydronephrosis. 4. No bowel obstruction. 5. Trace stranding adjacent to the pancreatic head. Correlate with lipase to exclude acute pancreatit is. 6. Unchanged lymphadenopathy. 7. Additional findings as above. ACT 112: Negative or not required by law. The above report was generated using voice recognition software. It may contain grammatical, syntax o r spelling errors. Electronically signed by: Graeme Carrera M.D. 10/08/2021 11:41 AM
[2021-10-08] MEDS: PEPTAMEN 1.5 CAL 1,000 ML BAG PEG SCH (14:53)
--- NOTE | 2021-10-08 16:02 | Hospitalist Progress Note ---
Date of Service October 08, 2021 Assessment & Plan (1) Pneumatosis coli: Plan: CT a/p on admission showed "Extensive pneumatosis involving the cecum, ascending colon, and transverse colon with extraluminal gas extending into the right retroperitoneal space and mediastinum." This reads very similar to his CT a/[facility] for which he underwent a benign exploratory laparotomy. - Presently abdomen appears benign with minimal tenderness, no rebound/guarding. Seen by surgery with no acute surgical need. Discussed case with Thai Hdez at [facility]. He coincidentally published paper on pneumatosis in patients using lactulose (PMID: [id number]). He agreed that there was no indication for surgery at this time given his physical exam findings, vital signs, and normal lactate. - NPO except ice chips. - Stop lactulose -will start rifaximin - continue Zosyn - General surgery will follow: continue conservative management restarted tube feedings on 10/08 stopped IVF on 10/08 (2) Pneumonia: Plan: Possible pneumonia vs. lung scarring as (again), CT a/p from 08/13 shows similar findings in the lung bases. Procalcitonin is 0.5, but there is so much going on for him that I - Zosyn for the pneumatosis will cover usual PNA bacteria as well as aspiration pneumonia - Defer atypical coverage for now - MRSA swab (3) Cardiomyopathy: Plan: Unknown EF and unknown cause (presumed due to his MD?). No records available at this time. - Continue beta-tata and furosemide (4) Paroxysmal atrial fibrillation: Plan: Presently in normal sinus. - Continue beta-tata - Hold apixaban (5) Dysphagia: Plan: Was trached due to Covid. Unclear if dysphagia is from trach vs muscular dystrophy or both. It sounds like he does eat at [facility], and I'm not clear on if it is just with ENAMEL DRIER or if he has an actual diet. - ENAMEL DRIER eval ordered: reports patient should not be eating. 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 Review of Systems Review of Systems: All systems reviewed & are unremarkable except as noted in HPI & below Physical Exam Physical Exam: Constitutional: + thin and + frail appearing; no acute distress Eyes: EOM intact bilaterally; no conjunctival abnormality ENMT: external ear and nose normal, oropharynx normal Neck: trachea midline, no thyromegaly normal visual inspection Respiratory: normal respiratory effort, lungs clear to auscultation no respiratory distress Cardiovascular: RRR, no murmur, no edema Gastrointestinal (Abdomen): Inspection/Auscultation: + abdomen distended, normal bowel sounds and + abdominal surgical scar (Midline); + abdomen abnormal to inspection Percussion/Palpation: + decreased abdomen tender (Mild tenderness on right side) and abdomen soft; no guarding, abdomen not rigid and no ascites Musculoskeletal: no cyanosis or clubbing, extremities motor strength 5/5 Skin: no rashes, warm and dry Neurologic: moves all extremities and awake Psychiatric: Orientation: alert, oriented to person and cooperative Results & Data Results & Data ([facility]) Vital Signs (Past 12 Hours) Vital Signs Temp Pulse Pulse Resp BP Pulse Ox O2 Del Method 10/08/21 11:10 36.8 C 65 18 115/73 94 Room Air 10/08/21 10:59 Room Air 10/08/21 08:00 70 10/08/21 08:14 19 100 Room Air 10/08/21 07:57 36.2 C L 69 18 107/71 94 Room Air PG Care Time/CCT Total # of Minutes Spent Total Time Spent with Patient: Total time spent is greater than 50% in coordination of care (as documented) at patient's floor/unit and/or counseling patient: Coding Level of Care Code 80045 Subseq Hosp Care Lvl 3 Diagnoses Pneumatosis coli K63.89 Pneumonia J18.9 Cardiomyopathy I42.9 Paroxysmal atrial fibrillation I48.0 Dysphagia R13.10 Myotonic muscular dystrophy G71.11 DVT prophylaxis Z29.9
[2021-10-08] MEDS: rifAXIMin 550 MG TABLET PO SCH (22:12)
[2021-10-08] MEDS: APIXABAN 5 MG TABLET PO SCH (22:13)
[2021-10-09] MEDS: CHECK SCOPOLAMINE PATCH PLACEMENT SCH ×3 (02:04→16:51)
[2021-10-09] MEDS: PIPERACILLIN/TAZOBACTAM 3.375 GM in DEXTROSE 5% 100 ML IV SCH ×3 (05:45→22:52)
[2021-10-09] MEDS ORDERED: Nursing to Pharmacy Communication SCH (07:00)
[2021-10-09 07:35] LABS: Hematocrit (blood only) 37.5 % (40.1-51.0); Hemoglobin 11.6 g/dl (14.0-18.0); Mean Corpuscular Hemoglobin 30.4 pg (25.0-34.0); Mean Corpuscular Hgb Conc 30.9 g/dL (32.0-36.0); Mean Corpuscular Volume 98.2 fL (80.0-100.0); Platelet Count 201 K/uL (130-400); RDW Coefficient of Variation 14.8 % (11.5-14.5); RDW Standard Deviation 53.8 fL (36.4-46.3); Red Blood Count 3.82 M/uL (4.63-6.08); White Blood Count 7.26 K/ul (4.8-10.8)
[2021-10-09 08:13] LABS: Albumin Globulin Ratio 1.3 (0.9-2); Albumin Level 3.5 gm/dl (3.4-5.0); BUN Creatinine Ratio 21.5 (10-20); Bilirubin,Total 0.7 mg/dl (0.2-1.0); Calcium 9.1 mg/dl (8.5-10.1); Creatinine Clr Calc Pharmacy 131.4 ml/min; Est GFR (African American) 128.7 ml/min; Est GFR (Non-African American) 111.1 ml/min; Globulin 2.7 gm/dl (2.5-4.0); Potassium 3.5 mmol/L (3.5-5.1); Total Protein 6.2 gm/dl (6.0-8.3)
[2021-10-09] MEDS: rifAXIMin 550 MG TABLET PO SCH ×2 (09:26→22:33)
[2021-10-09] MEDS: APIXABAN 5 MG TABLET PO SCH ×2 (09:26→22:33)
[2021-10-09] MEDS: METOPROLOL TARTRATE 25 MG TAB OG SCH ×2 (09:26→22:33)
[2021-10-09] MEDS: SERTRALINE HCL 50 MG TABLET PEG SCH (09:26)
[2021-10-09] MEDS: CARBAMIDE PEROXIDE 6.5% 15 ML BTL OTB SCH ×2 (09:27→22:33)
[2021-10-09] MEDS: TUBE FEEDING WATER FLUSH GT SCH ×3 (10:18→18:15)
[2021-10-09] MEDS ORDERED: MICONAZOLE NITRATE POWDER 43 GM EXT PRN (10:32)
--- NOTE | 2021-10-09 14:10 | Hospitalist Progress Note ---
Date of Service October 09, 2021 Assessment & Plan (1) Pneumatosis coli: Plan: CT a/p on admission showed "Extensive pneumatosis involving the cecum, ascending colon, and transverse colon with extraluminal gas extending into the right retroperitoneal space and mediastinum." This reads very similar to [facility] for which he underwent a benign exploratory laparotomy. - Presently abdomen appears benign with minimal tenderness, no rebound/guarding. Seen by surgery with no acute surgical need. Discussed case with Thai Hdez at [facility]. He coincidentally published paper on pneumatosis in patients using lactulose (PMID: [id number]). He agreed that there was no indication for surgery at this time given his physical exam findings, vital signs, and normal lactate. - NPO except ice chips. - Stop lactulose -started rifaximin; this will be continued - continue Zosyn - General surgery will follow: continue conservative management restarted tube feedings on 10/08 stopped IVF on 10/08 -Will order 1 liter of D5W as his soidum is mildly increased. will monitor. (2) Pneumonia: Plan: Possible pneumonia vs. lung scarring as (again), CT a/p from 08/13 shows similar findings in the lung bases. Procalcitonin is 0.5, but there is so much going on for him that I - Zosyn for the pneumatosis will cover usual PNA bacteria as well as aspiration pneumonia - Defer atypical coverage for now - MRSA swab (3) Cardiomyopathy: Plan: Unknown EF and unknown cause (presumed due to his MD?). No records available at this time. - Continue beta-tata and furosemide (4) Paroxysmal atrial fibrillation: Plan: Presently in normal sinus. - Continue beta-tata - restarted apixaban (5) Dysphagia: Plan: Was trached due to Covid. Unclear if dysphagia is from trach vs muscular dystrophy or both. It sounds like he does eat at [facility], and I'm not clear on if it is just with CROSSING GUARD or if he has an actual diet. - CROSSING GUARD eval ordered: reports patient should not be eating. 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 He is tolerating his tube feeds. Review of Systems Review of Systems: All systems reviewed & are unremarkable except as noted in HPI & below Physical Exam Physical Exam: Constitutional: + thin and + frail appearing; no acute distress Eyes: EOM intact bilaterally; no conjunctival abnormality ENMT: external ear and nose normal, oropharynx normal Neck: trachea midline, no thyromegaly normal visual inspection Respiratory: normal respiratory effort, lungs clear to auscultation no respiratory distress Cardiovascular: RRR, no murmur, no edema Gastrointestinal (Abdomen): Inspection/Auscultation: + abdomen distended, normal bowel sounds and + abdominal surgical scar (Midline); + abdomen abnormal to inspection Percussion/Palpation: + decreased abdomen tender (Mild tenderness on right side) and abdomen soft; no guarding, abdomen not rigid and no ascites Musculoskeletal: no cyanosis or clubbing, extremities motor strength 5/5 Skin: no rashes, warm and dry Neurologic: moves all extremities and awake Psychiatric: Orientation: alert, oriented to person and cooperative Results & Data Results & Data ([facility]) Vital Signs (Past 12 Hours) Vital Signs Temp Pulse Pulse Resp BP Pulse Ox O2 Del Method 10/09/21 08:00 75 10/09/21 08:10 36.9 C 70 16 123/78 95 Room Air PG Care Time/CCT Total # of Minutes Spent Total Time Spent with Patient: Total time spent is greater than 50% in coordination of care (as documented) at patient's floor/unit and/or counseling patient: Coding Level of Care Code 03757 Subseq Hosp Care Lvl 3 Diagnoses Pneumatosis coli K63.89 Pneumonia J18.9 Cardiomyopathy I42.9 Paroxysmal atrial fibrillation I48.0 Dysphagia R13.10 Myotonic muscular dystrophy G71.11 DVT prophylaxis Z29.9
[2021-10-09] MEDS ORDERED: DEXTROSE 5% 1,000 ML IV SCH (14:45)
[2021-10-10] MEDS: TUBE FEEDING WATER FLUSH GT SCH ×7 (01:37→22:26)
[2021-10-10] MEDS: CHECK SCOPOLAMINE PATCH PLACEMENT SCH ×3 (01:38→16:36)
[2021-10-10] MEDS: PIPERACILLIN/TAZOBACTAM 3.375 GM in DEXTROSE 5% 100 ML IV SCH ×3 (06:01→22:25)
[2021-10-10] MEDS: SERTRALINE HCL 50 MG TABLET PEG SCH (09:00)
[2021-10-10] MEDS: APIXABAN 5 MG TABLET PO SCH ×2 (09:00→21:34)
[2021-10-10] MEDS: METOPROLOL TARTRATE 25 MG TAB OG SCH ×2 (09:00→21:36)
[2021-10-10] MEDS: CARBAMIDE PEROXIDE 6.5% 15 ML BTL OTB SCH ×2 (09:01→21:50)
[2021-10-10] MEDS: rifAXIMin 550 MG TABLET PO SCH ×2 (09:01→21:40)
[2021-10-10] MEDS: SCOPOLAMINE 1 MG TDSY TD SCH (09:01)
[2021-10-10] MEDS: PEPTAMEN 1.5 CAL 1,000 ML BAG PEG SCH (13:52)
--- NOTE | 2021-10-10 16:34 | Hospitalist Progress Note ---
Date of Service October 10, 2021 Assessment & Plan (1) Pneumatosis coli: Plan: CT a/p on admission showed "Extensive pneumatosis involving the cecum, ascending colon, and transverse colon with extraluminal gas extending into the right retroperitoneal space and mediastinum." This reads very similar to his CT a/p at [facility] on 08/13/2021 for which he underwent a benign exploratory laparotomy. - Presently abdomen appears benign with minimal tenderness, no rebound/guarding. Seen by surgery with no acute surgical need. Discussed case with Thai Hdez at [facility]. He coincidentally published paper on pneumatosis in patients using lactulose (PMID: [id number]). He agreed that there was no indication for surgery at this time given his physical exam findings, vital signs, and normal lactate. - NPO except ice chips. - Stop lactulose -started rifaximin; this will be continued - continue Zosyn - General surgery will follow: continue conservative management restarted tube feedings on 10/08 stopped IVF on 10/08 -Will order 1 liter of D5W as his sodium is mildly increased on 10/09 -On 10/10 sodium has improved. will recheck in AM. If tolerates feedings, and electrolytes at baseline than patient may be discharged. will monitor. (2) Pneumonia: Plan: Possible pneumonia vs. lung scarring as (again), CT a/p from 08/13 shows similar findings in the lung bases. Procalcitonin is 0.5, but there is so much going on for him that I - Zosyn for the pneumatosis will cover usual PNA bacteria as well as aspiration pneumonia - Defer atypical coverage for now - MRSA swab: positive. however, he is not exhibiting signs of worsening infection despite now having MRSA antibiotic coverage. In fact patient is doing well. will continue current antibiotic regimen. (3) Cardiomyopathy: Plan: Unknown EF and unknown cause (presumed due to his MD?). No records available at this time. - Continue beta-tata and furosemide (4) Paroxysmal atrial fibrillation: Plan: Presently in normal sinus. - Continue beta-tata - restarted apixaban (5) Dysphagia: Plan: Was trached due to Covid. Unclear if dysphagia is from trach vs muscular dystrophy or both. It sounds like he does eat at [facility], and I'm not clear on if it is just with ASSISTANT PROFESSOR OF PHYSICS or if he has an actual diet. - ASSISTANT PROFESSOR OF PHYSICS eval ordered: reports patient should not be eating. 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 Review of Systems Review of Systems: All systems reviewed & are unremarkable except as noted in HPI & below Physical Exam Physical Exam: Constitutional: + thin and + frail appearing; no acute distress Eyes: EOM intact bilaterally; no conjunctival abnormality ENMT: external ear and nose normal, oropharynx normal Neck: trachea midline, no thyromegaly normal visual inspection Respiratory: normal respiratory effort, lungs clear to auscultation no respiratory distress Cardiovascular: RRR, no murmur, no edema Gastrointestinal (Abdomen): Inspection/Auscultation: + abdomen distended, normal bowel sounds and + abdominal surgical scar (Midline); + abdomen abnormal to inspection Percussion/Palpation: + decreased abdomen tender (Mild tenderness on right side) and abdomen soft; no guarding, abdomen not rigid and no ascites Musculoskeletal: no cyanosis or clubbing, extremities motor strength 5/5 Skin: no rashes, warm and dry Neurologic: moves all extremities and awake Psychiatric: Orientation: alert, oriented to person and cooperative Results & Data Results & Data ([facility]) Vital Signs (Past 12 Hours) Vital Signs Temp Pulse Pulse Resp BP BP Pulse Ox 10/10/21 15:33 70 10/10/21 15:24 36.4 C L 71 18 113/74 93 10/10/21 12:02 10/10/21 11:13 36.5 C 70 20 103/69 95 10/10/21 08:00 70 10/10/21 07:29 36.4 C L 70 20 122/78 93 O2 Del Method 10/10/21 15:33 10/10/21 15:24 Room Air 10/10/21 12:02 Room Air 10/10/21 11:13 Room Air 10/10/21 08:00 10/10/21 07:29 Room Air PG Care Time/CCT Total # of Minutes Spent Total Time Spent with Patient: Total time spent is greater than 50% in coordination of care (as documented) at patient's floor/unit and/or counseling patient: Coding Level of Care Code 44350 Subseq Hosp Care Lvl 2 Diagnoses Pneumatosis coli K63.89 Pneumonia J18.9 Cardiomyopathy I42.9 Paroxysmal atrial fibrillation I48.0 Dysphagia R13.10 Myotonic muscular dystrophy G71.11 DVT prophylaxis Z29.9
[2021-10-10 17:46] LABS: BUN Creatinine Ratio 15.4 (10-20); Creatinine Clr Calc Pharmacy 131.4 ml/min; Est GFR (African American) 128.7 ml/min; Est GFR (Non-African American) 111.1 ml/min; Potassium 3.5 mmol/L (3.5-5.1)
[2021-10-11] MEDS: CHECK SCOPOLAMINE PATCH PLACEMENT SCH ×3 (00:07→16:16)
[2021-10-11] MEDS: TUBE FEEDING WATER FLUSH GT SCH ×6 (03:22→20:26)
[2021-10-11] MEDS: PIPERACILLIN/TAZOBACTAM 3.375 GM in DEXTROSE 5% 100 ML IV SCH ×3 (05:54→20:25)
[2021-10-11 07:49] LABS: Hematocrit (blood only) 39.6 % (40.1-51.0); Hemoglobin 12.3 g/dl (14.0-18.0); Mean Corpuscular Hemoglobin 30.1 pg (25.0-34.0); Mean Corpuscular Hgb Conc 31.1 g/dL (32.0-36.0); Mean Corpuscular Volume 97.1 fL (80.0-100.0); Mean Platelet Volume 9.2 fL (9.4-12.4); Platelet Count 193 K/uL (130-400); RDW Coefficient of Variation 14.7 % (11.5-14.5); RDW Standard Deviation 52.3 fL (36.4-46.3); Red Blood Count 4.08 M/uL (4.63-6.08); White Blood Count 7.09 K/ul (4.8-10.8)
[2021-10-11 08:19] LABS: BUN Creatinine Ratio 16.1 (10-20); Calcium 9.4 mg/dl (8.5-10.1); Creatinine Clr Calc Pharmacy 137.8 ml/min; Est GFR (African American) 131.3 ml/min; Est GFR (Non-African American) 113.3 ml/min; Potassium 3.6 mmol/L (3.5-5.1)
[2021-10-11] MEDS: APIXABAN 5 MG TABLET PO SCH ×2 (09:57→20:25)
[2021-10-11] MEDS: SERTRALINE HCL 50 MG TABLET PEG SCH (09:57)
[2021-10-11] MEDS: rifAXIMin 550 MG TABLET PO SCH ×2 (09:57→20:25)
[2021-10-11] MEDS: METOPROLOL TARTRATE 25 MG TAB OG SCH ×2 (09:57→20:25)
--- NOTE | 2021-10-11 18:10 | Hospitalist Progress Note ---
Date of Service October 11, 2021 Assessment & Plan (1) Pneumatosis coli: Plan: CT a/p on admission showed "Extensive pneumatosis involving the cecum, ascending colon, and transverse colon with extraluminal gas extending into the right retroperitoneal space and mediastinum." This reads very similar to his CT a/p at [facility] on 08/13/2021 for which he underwent a benign exploratory laparotomy. - Presently abdomen appears benign with minimal tenderness, no rebound/guarding. Seen by surgery with no acute surgical need. Discussed case with Thai Hdez at [facility]. He coincidentally published paper on pneumatosis in patients using lactulose (PMID: [id number]). He agreed that there was no indication for surgery at this time given his physical exam findings, vital signs, and normal lactate. - NPO except ice chips. - Stop lactulose -started rifaximin; this will be continued - continue Zosyn - General surgery will follow: continue conservative management restarted tube feedings on 10/08 stopped IVF on 10/08 -Will order 1 liter of D5W as his sodium is mildly increased on 10/09 -On 10/10 sodium has improved. 10/11 sodium slightly worsened but still normal, increased free water intake. If tolerates feedings, and electrolytes at baseline than patient may be discharged. plan for tomorrow. Informed case management, needs auth. (2) Pneumonia: Plan: Possible pneumonia vs. lung scarring as (again), CT a/p from 08/13 shows similar findings in the lung bases. Procalcitonin is 0.5, but there is so much going on for him that I - Zosyn for the pneumatosis will cover usual PNA bacteria as well as aspiration pneumonia - Defer atypical coverage for now - MRSA swab: positive. however, he is not exhibiting signs of worsening infection despite now having MRSA antibiotic coverage. In fact patient is doing well. will continue current antibiotic regimen. (3) Cardiomyopathy: Plan: Unknown EF and unknown cause (presumed due to his MD?). No records available at this time. - Continue beta-tata and furosemide (4) Paroxysmal atrial fibrillation: Plan: Presently in normal sinus. - Continue beta-tata - restarted apixaban (5) Dysphagia: Plan: Was trached due to Covid. Unclear if dysphagia is from trach vs muscular dystrophy or both. It sounds like he does eat at [facility], and I'm not clear on if it is just with [employer] or if he has an actual diet. - [employer] eval ordered: reports patient should not be eating. 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 (7) DVT prophylaxis: Plan: restarted apixaban Admission and Anticipated Discharge Date Admission Date: October 06, 2021 Subjective Patient reports no new symptoms Review of Systems Review of Systems: All systems reviewed & are unremarkable except as noted in HPI & below Physical Exam Physical Exam: Constitutional: + thin and + frail appearing; no acute distress Eyes: EOM intact bilaterally; no conjunctival abnormality ENMT: external ear and nose normal, oropharynx normal Neck: trachea midline, no thyromegaly normal visual inspection Respiratory: normal respiratory effort, lungs clear to auscultation no respiratory distress Cardiovascular: RRR, no murmur, no edema Gastrointestinal (Abdomen): Inspection/Auscultation: + abdomen distended, normal bowel sounds and + abdominal surgical scar (Midline); + abdomen abnormal to inspection Percussion/Palpation: + decreased abdomen tender (Mild tenderness on right side) and abdomen soft; no guarding, abdomen not rigid and no ascites Musculoskeletal: no cyanosis or clubbing, extremities motor strength 5/5 Skin: no rashes, warm and dry Neurologic: moves all extremities and awake Psychiatric: Orientation: alert, oriented to person and cooperative Results & Data Results & Data ([facility]) Vital Signs (Past 12 Hours) Vital Signs Temp Pulse Pulse Resp BP BP Pulse Ox 10/11/21 16:00 72 10/11/21 16:16 36.5 C 70 18 116/79 90 10/11/21 16:01 36.5 C 70 16 116/79 94 10/11/21 13:00 10/11/21 12:28 10/11/21 08:00 70 10/11/21 06:43 36.6 C 70 18 116/71 92 Pulse Ox O2 Del Method O2 Del Method 10/11/21 16:00 10/11/21 16:16 Room Air 10/11/21 16:01 Room Air 10/11/21 13:00 95 Room Air 10/11/21 12:28 Room Air 10/11/21 08:00 10/11/21 06:43 Room Air PG Care Time/CCT Total # of Minutes Spent Total Time Spent with Patient: Total time spent is greater than 50% in coordination of care (as documented) at patient's floor/unit and/or counseling patient: Coding Level of Care Code 71542 Subseq Hosp Care Lvl 2 Diagnoses Pneumatosis coli K63.89 Pneumonia J18.9 Cardiomyopathy I42.9 Paroxysmal atrial fibrillation I48.0 Dysphagia R13.10 Myotonic muscular dystrophy G71.11 DVT prophylaxis Z29.9
[2021-10-12] MEDS: CHECK SCOPOLAMINE PATCH PLACEMENT SCH ×2 (00:47→08:31)
[2021-10-12] MEDS: TUBE FEEDING WATER FLUSH GT SCH ×4 (00:48→11:43)
[2021-10-12] MEDS: PIPERACILLIN/TAZOBACTAM 3.375 GM in DEXTROSE 5% 100 ML IV SCH (05:31)
[2021-10-12] MEDS: rifAXIMin 550 MG TABLET PO SCH (08:31)
[2021-10-12] MEDS: APIXABAN 5 MG TABLET PO SCH (08:31)
[2021-10-12] MEDS: SERTRALINE HCL 50 MG TABLET PEG SCH (08:31)
[2021-10-12] MEDS: METOPROLOL TARTRATE 25 MG TAB OG SCH (08:31)
[2021-10-12 13:08] LABS: BUN Creatinine Ratio 17.7 (10-20); Calcium 9.7 mg/dl (8.5-10.1); Creatinine Clr Calc Pharmacy 137.8 ml/min; Est GFR (African American) 131.3 ml/min; Est GFR (Non-African American) 113.3 ml/min; Potassium 4.1 mmol/L (3.5-5.1)
--- NOTE | 2021-10-24 10:53 | Discharge Summary ---
Date of Service October 12, 2021 Admission HPI Per Admitting Provider 51yo M w/ hx of muscular dystrophy who presents with episode of pneumatosis coli. The patient was admitted to [facility] in early August when he had nausea, vomiting, and abdominal pain. At that time, there was concern for perforation in the region of the ascending colon/hepatic flexure with pericolonic extraluminal gas and trace RUQ pneumoperitoneum. He underwent an emergent ex lap at [facility], and they did *NOT* find any perforation. He was eventually discharged to [facility]. Per the patient, yesterday they were giving him medications in applesauce yesterday when he became acutely nauseated and threw up. However, he did not have abdominal pain. The provider there ordered a CT scan which showed further pneumatosis, and he was sent to the ER. Principal Diagnosis Pneumatosis coli Discharge Exam Constitutional: + thin and + frail appearing; no acute distress Eyes: EOM intact bilaterally; no conjunctival abnormality ENMT: external ear and nose normal, oropharynx normal Neck: trachea midline, no thyromegaly normal visual inspection Respiratory: normal respiratory effort, lungs clear to auscultation no respiratory distress Cardiovascular: RRR, no murmur, no edema Gastrointestinal (Abdomen): Inspection/Auscultation: + abdomen distended, normal bowel sounds and + abdominal surgical scar (Midline); + abdomen abnormal to inspection Percussion/Palpation: + decreased abdomen tender (Mild tenderness on right side) and abdomen soft; no guarding, abdomen not rigid and no ascites Musculoskeletal: no cyanosis or clubbing, extremities motor strength 5/5 Skin: no rashes, warm and dry Neurologic: moves all extremities and awake Psychiatric: Orientation: alert, oriented to person and cooperative Discharge Data Allergies Allergy/AdvReac Type Severity Reaction Status Date / Time morphine Allergy Unknown Unknown Verified 10/06/21 17:02 Consultations 10/06/21 18:49 ED Decision to Admit Stat 10/06/21 22:13 Consult General Surgery Routine Ordered Studies 10/08/21 09:59 CT abd pelvis wo con Routine Hospital Course (1) Pneumatosis coli: CT a/p on admission showed "Extensive pneumatosis involving the cecum, ascending colon, and transverse colon with extraluminal gas extending into the right retroperitoneal space and mediastinum." This reads very similar to his CT a/p at [facility] on 08/13/2021 for which he underwent a benign exploratory laparotomy. - Presently abdomen appears benign with minimal tenderness, no rebound/guarding. Seen by surgery with no acute surgical need. Discussed case with Thai Hdez at [facility]. He coincidentally published paper on pneumatosis in patients using lactulose (PMID: [id number]). He agreed that there was no indication for surgery at this time given his physical exam findings, vital signs, and normal lactate. - NPO except ice chips. - Stop lactulose -started rifaximin; this will be continued - continue Zosyn - General surgery will follow: continue conservative management restarted tube feedings on 10/08 stopped IVF on 10/08 -Will order 1 liter of D5W as his sodium is mildly increased on 10/09 -On 10/10 sodium has improved. 10/11 sodium slightly worsened but still normal, increased free water intake. If tolerates feedings, and electrolytes at baseline than patient may be discharged. On 10/12 patient was discharged. Discharge instructions noted below. (2) Pneumonia: Possible pneumonia vs. lung scarring as (again), CT a/p from 08/13 shows similar findings in the lung bases. Procalcitonin is 0.5, but there is so much going on for him that I - Zosyn for the pneumatosis will cover usual PNA bacteria as well as aspiration pneumonia - Defer atypical coverage for now - MRSA swab: positive. however, he is not exhibiting signs of worsening infection despite now having MRSA antibiotic coverage. In fact patient is doing well. (3) Cardiomyopathy: Unknown EF and unknown cause (presumed due to his MD?). No records available at this time. - Continue beta-tata and furosemide (4) Paroxysmal atrial fibrillation: Presently in normal sinus. - Continue beta-tata - restarted apixaban (5) Dysphagia: Was trached due to Covid. Unclear if dysphagia is from trach vs muscular dystrophy or both. It sounds like he does eat at [facility], and I'm not clear on if it is just with [employer]PERATOR or if he has an actual diet. 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 (6) Myotonic muscular dystrophy: - PT/OT was placed during stay. (7) DVT prophylaxis: restarted apixaban Total Time Total Time Spent Total Time Spent (In Minutes): 34 Discharge Plan Discharge Items Patient Disposition: Transfer Assisted Fac Reason For Visit: PNEUMATOSIS Discharge Diagnosis: Pneumatosis Activity: Resume your previous activity Non-emergency contact: Primary Care Provider Call non-emergency contact if: you have any medication questions Follow-up/Referrals: Irving Rocha [Primary Care Provider] - Diet: Nothing by Mouth Addtl Attending Provider Instructions: You have been hospitalized for an acute medical problem. During your stay at [facility], we have made an effort to correct the problem that brought you to the hospital while keeping you as comfortable as possible. Medications were used to bring your condition under control and your discharge instructions will include directions for any medications you should take after leaving the hospital. Please make sure you see your Primary Care Provider as part of your follow up plan. Recommend to continue nothing by mouth. To repeat your blood work including BMP in 1 week. Please check ammonia level in 1 week. You will be discharged on rifaxamin which will replace your lactulose. You completed your course of antibiotics. Please followup with PCP. Tube feeding water flush 200 ml/q4h Peptamen 1.5 kcal PROVIDER Instructions: 15ml/hr; increase 10ml/hr q8hr with goal rate of 55ml/hr x 24 hr Define ordered ROUTE peg tube Pending Studies at Discharge: No Stand-Alone Forms: My [facility], Smoking Cessation Medications and DC Order Prescriptions: New metoprolol tartrate 25 mg Tablet 6.25 mg OG BID Qty: 60 0RF Xifaxan 550 mg Tablet 550 mg PO BID Qty: 60 0RF Continued ondansetron HCl 4 mg/5 mL Solution 4 mg feeding tube Q6 PRN (Reason: Nausea And Vomiting) sertraline 25 mg Tablet 50 mg feeding tube DAILY simethicone 125 mg Tablet 125 mg feeding tube Q6 PRN (Reason: flatulence) scopolamine base 1 mg over 3 days Patch 3 Day 1 patch TRANSDERMAL Q72H omeprazole 20 mg Tablet,Disintegrat, Delay Rel 20 mg PO DAILY Rx Instructions: via peg tube multivitamin Tablet 1 tab feeding tube DAILY nystatin 100,000 unit/gram Cream 1 applic TOPICAL BID Rx Instructions: apply to groin guaifenesin 400 mg Tablet 400 mg PO Q8 PRN (Reason: Congestion) Rx Instructions: via peg tube melatonin 1 mg Tablet 2 mg feeding tube HS Metamucil Cap 0.36gm 5 cap G-tube DAILY acetaminophen 325 mg Tablet 650 mg feeding tube Q6 MDD 3g PRN (Reason: temp>101) albuterol sulfate 2.5 mg /3 mL (0.083 %) Solution For Nebulization 2.5 mg INHALATION Q6 PRN (Reason: Wheezing) Debrox 6.5 % Drops 4 drp OTB BID Rx Instructions: ordered 10/05/21 use for 4 days Eliquis 5 mg Tablet 5 mg feeding tube BID Compound Magic Mix See Rx Instructions .ROUTE .COMPLEX Rx Instructions: nystatin 60gm,silvadene 60gm,hydrocortizone 1% 60gm apply to groin & perisacral region topically every shift for wound care clean site w/NSS or skin cleanser-apply magic mix-offload pressure to affected areas Compound Magic Mix See Rx Instructions .ROUTE .COMPLEX Rx Instructions: Nystatin 60gm,silvadene 60gm,hydrocortizone 1% 60gm apply to groin and perisacral region topically as needed for wound care clean site w/NSS or skin cleanser-apply magic mix-offload pressure to affected areas nutritional supplements Liquid 1 ea feeding tube QS Rx Instructions: every shift infuse peptamen 1.5 @ 65cc/hr x 24 hours;total volume 1560cc flush w/60cc H2O ac&pc feedings Enternal Feed Order See Rx Instructions .ROUTE .COMPLEX Rx Instructions: flush tube with 30cc water before and after administration of medication pass Enternal Feed Order See Rx Instructions .ROUTE .COMPLEX Rx Instructions: check residual every 4 hours if > 100ml hold tube feeding for 1 hour,and recheck. if residual remains >100ml,notify physician Changed furosemide 40 mg Tablet 40 mg feeding tube Q48H Qty: 30 0RF potassium chloride 10 mEq Tablet Extended Release 10 meq PO Q48H Qty: 30 0RF Rx Instructions: via peg tube Discontinued metoprolol succinate 25 mg Tablet Extended Release 24 Hr 12.5 mg PO DAILY Rx Instructions: via peg tube lactulose 20 gram/30 mL Solution 20 g PO BID acetaminophen 325 mg Tablet 650 mg feeding tube Q6 MDD 3g PRN (Reason: pain level 1-10) Discharge Orders: Discharge Order (Routine); Ordered 10/12/21 Ordered By: Nik Rebollar Admission Data Admit Date/Time: 10/06/21 20:42 Attending Provider: Nik Rebollar Admit Provider: Simon Santos Primary Care Provider: [facility] Other Providers: Simon Santos ; Moose Salinas ; [facility] Interventions: Discharge Summary Assessment (RN) Last Done: 10/12/21 11:00 Coding Level of Care Code D/C DAY MANAGEMENT >30 MINS Diagnoses Pneumatosis coli K63.89 Pneumonia J18.9 Cardiomyopathy I42.9 Paroxysmal atrial fibrillation I48.0 Dysphagia R13.10 Myotonic muscular dystrophy G71.11 DVT prophylaxis Z29.9
== END 2021-10-12 13:57 | DRG 393 ==
LOC: ED 15:48 → EDINP 20:42 → SUATTDRO 20:42 → 2N 22:19
DX: G71.11 Myotonic muscular dystrophy; I42.9 Cardiomyopathy, unspecified; K63.89 Other specified diseases of intestine; Z95.810 Presence of automatic (implantable) cardiac defibrillator; Z86.16 Personal history of COVID-19; Z88.5 Allergy status to narcotic agent; J98.2 Interstitial emphysema; Z93.1 Gastrostomy status; G47.33 Obstructive sleep apnea (adult) (pediatric); J69.0 Pneumonitis due to inhalation of food and vomit; R13.19 Other dysphagia; I48.0 Paroxysmal atrial fibrillation; Z79.01 Long term (current) use of anticoagulants